=== PATIENT | male | born 1975 | race Caucasian/White ===

== ENCOUNTER 2020-01-10 14:25 | Emergency (ER) | payer SELFPAY ==
[~2020-01-10] VITALS: Ht 162.6 cm; Wt 99.5 kg
[2020-01-10 14:36] VITALS: BP 200/107
[2020-01-10] MEDS ORDERED: PRED-220 PO (14:42)
[2020-01-10] MEDS ORDERED: INDO25CA21 PO (14:42)
--- NOTE | 2020-01-10 14:42 | PHYS DOC ---
General Adult EDM: Chief Complaint: ELBOW PROBLEM HPI: HPI: Patient is a 44 year old male with history of gout who presents the ED today complaining of moderate pain to the right elbow described as sharp and intermittent that began yesterday, patient states this pain is consistent with his gout. Patient denies any fever. Denies any injury. States the pain is worse on range of motion. (JUSTUS CONTRERAS APRN) Review of Systems: Review of Systems: Constitutional: Denies fever or chills. [] Musculoskeletal: Reports right elbow pain Integument: Denies rash. [] Neurologic: Denies headache, focal weakness or sensory changes. [] Psychiatric: Denies depression or anxiety. [] (JUSTUS CONTRERAS APRN) Heart Score: Risk Factors: Risk Factors: DM, Current or recent (<one month) smoker, HTN, HLP, family history of CAD, obesity. Risk Scores: Score 0 - 3: 2.5% MACE over next 6 weeks - Discharge Home Score 4 - 6: 20.3% MACE over next 6 weeks - Admit for Clinical Observation Score 7 - 10: 72.7% MACE over next 6 weeks - Early Invasive Strategies (JUSTUS CONTRERAS APRN) Physical Exam: PE: Constitutional: Well developed, well nourished, no acute distress, non-toxic appearance. [] Skin: Warm, dry, no erythema, no rash. [] Back: No tenderness, no CVA tenderness. [] Extremities: Right elbow with no obvious deformity, tenderness on palpation of the elbow diffusely. There is no warmth to the elbow, there is no redness. Full range of motion to the right elbow including flexion and extension, plantarflexion and dorsiflexion of the right forearm. +2 right radial pulse. Adequate radial, medial, ulnar sensation to the right hand. Cap refill less than 2 seconds right fingers. Neurologic: Alert and oriented X 3, normal motor function, normal sensory function, no focal deficits noted. [] Psychologic: Affect normal, judgement normal, mood normal. [] (JUSTUS CONTRERAS APRN) EKG: EKG: [] (JUSTUS CONTRERAS APRN) Radiology/Procedures: Radiology/Procedures: [] (JUSTUS CONTRERAS APRN) Course & Med Decision Making: Course & Med Decision Making Pertinent Labs and Imaging studies reviewed. (See chart for details) This is a 44-year-old male patient presenting to the ED today with right elbow pain consistent with his gout. Patient was discharged with indomethacin and prednisone. Follow-up with his own PCP in 1 to 2 weeks. His blood pressure was also 200/107. He states he is not seen a primary care doctor for a while and and does not have history of blood pressure. Patient has no headache, no chest pain or shortness of breath. Encouraged him to establish care with a PCP. In the meantime we talked about lifestyle changes related to high blood pressure. (JUSTUS CONTRERAS APRN) Dragon Disclaimer: Dragon Disclaimer: This electronic medical record was generated, in whole or in part, using a voice recognition dictation system. (JUSTUS CONTRERAS APRN) Departure Departure Impression: Primary Impression: Gout of right elbow Qualified Codes: M10.9 - Gout, unspecified Additional Impression: High blood pressure Qualified Codes: I10 - Essential (primary) hypertension Disposition: HOME, SELF-CARE Condition: STABLE Referrals: NON,STAFF (PCP) Follow-up with your own doctor in 1 to 2 weeks Patient Instructions: Gout, [id number], Hypertension Additional Instructions: You were evaluated in the emergency room for right elbow pain consistent with arthritis. Take the prescribed medications as ordered. Your blood pressure was also high in the emergency room. Consider getting a primary care doctor and following up. Scripts Prednisone (PREDNISONE ) 10 Mg Tablet 10 MG PO UD for PREDNISONE TAPER, #39 TAB 0 Refills Take 3 tablets by mouth twice a day for 3 days, then take 2 tablets by mouth twice a day for 3 days, then take 1 tablet by mouth twice a day for 3 days, then take 1 tablet by mouth daily x 3 days, then stop. Prov: JUSTUS CONTRERAS APRN 01/10/20 Indomethacin (INDOMETHACIN) 25 Mg Capsule 1 CAP PO TID for arthritis for 10 Days, #30 CAP 0 Refills with food Prov: JUSTUS CONTRERAS APRN 01/10/20 Justicifation of Admission Dx: Justifications for Admission: Justification of Admission Dx: N/A (JUSTUS CONTRERAS APRN) Attending Signature Attending Signature I have reviewed the PA/FIREBR[employer] HELPER's note and plan of care. I was available for consultation as needed at all times during the patient's visit in the emergency department. I agree with the clinical impression, plan and disposition. (SHAKA MCGRATH DO) JUSTUS CONTRERAS APRN Jan 10, 2020 14:42 SHAKA MCGRATH DO Jan 11, 2020 09:27
== END 2020-01-10 14:54 | disposition home or self-care (01) ==
LOC: ER 14:25
DX: M10.9 Gout, unspecified (principal); M25.521 Pain in right elbow; I10 Essential (primary) hypertension; R20.2 Paresthesia of skin
CPT/HCPCS: 99283